=== PATIENT | male | born 1965 | race Caucasian/White ===

== ENCOUNTER 2021-08-13 05:49 | Day surgery (SDC) | payer OTHER ==
[~2021-08-13] VITALS: Ht 167.6 cm; Wt 82.1 kg
[~2021-08-13 05:49] MED LIST: AMLO-258 PO; ASPI-1444 PO; ATOR40TA28 PO; BUME1TAB34 PO; CARV6 PO; CLOP75TA60 PO; CLOT10SO TP; DULA1.5P SQ; ERTU15TA PO; FOLI0.4T6 PO; GLIP10TA10 PO; ISOS5TAB5 PO; METF-1211 PO; SACU1TAB7 PO; SITA100 PO; SODIUM CHLORIDE 0.9% 1,000 ML IV ONE; SODIUM CHLORIDE 0.9% 1,000 ML ONE; TAMS-13 PO
[2021-08-13] MEDS ORDERED: DIAZEPAM 5 MG TABLET ONE (05:50)
[2021-08-13] MEDS ORDERED: ASPIRIN 81 MG CHEWABLE TABLET ONE (05:51)
[2021-08-13] MEDS ORDERED: DiphenhydrAMINE HCL 50 MG CAPSULE ONE (05:51)
[2021-08-13 06:16] LABS: COVID AG,FIA SOURCE NASAL SWAB
[2021-08-13 06:55] LABS: GLUCOMETER DEV NAME(LOC) SDS.; GLUCOSE,POINT OF CARE 132 MG/DL (70-110)
[2021-08-13 07:26] VITALS: BP 174/77
[2021-08-13] MEDS ORDERED: SODIUM BICARBONATE 50 MEQ/50 ML VIAL ONE (07:26)
[2021-08-13] MEDS ORDERED: MIDAZOLAM HCL 2 MG/2 ML VIAL ONE (07:26)
[2021-08-13] MEDS ORDERED: FentaNYL CITRATE PF 100 MCG/2 ML VIAL ONE ×2 (07:26→08:44)
[2021-08-13] MEDS ORDERED: IOHEXOL 300 MG/ML 50 ML VIAL ONE (07:26)
[2021-08-13] MEDS ORDERED: HEPARIN SODIUM 1000 UNITS/NS 1,000 ML ONE (07:26)
[2021-08-13] MEDS ORDERED: IOHEXOL 300 MG/ML 150 ML VIAL ONE (07:26)
[2021-08-13] MEDS ORDERED: LIDOCAINE/PF 1% 30 ML VIAL ONE (07:26)
[2021-08-13] MEDS ORDERED: IOHEXOL 300 MG/ML 100 ML VIAL ONE (07:26)
[2021-08-13] MEDS ORDERED: ASPIRIN 81 MG CHEWABLE TABLET PO ONE (07:30)
[2021-08-13] MEDS ORDERED: DIAZEPAM 5 MG TABLET PO ONE (07:30)
[2021-08-13] MEDS ORDERED: DiphenhydrAMINE HCL 50 MG CAPSULE PO ONE (07:30)
[2021-08-13] MEDS ORDERED: IOHEXOL 300 MG/ML 150 ML VIAL ICOR ONE (07:45)
[2021-08-13] MEDS ORDERED: LIDOCAINE 1% 30 ML/SOD BICARB 8.4% 4 ML SQ ONE (07:45)
[2021-08-13] MEDS ORDERED: FentaNYL CITRATE PF 100 MCG/2 ML VIAL IVP ONE ×4 (07:45→08:45)
[2021-08-13] MEDS ORDERED: HEPARIN SODIUM 1000 UNITS/NS 1,000 ML IARTER ONE (07:45)
[2021-08-13] MEDS ORDERED: MIDAZOLAM HCL 2 MG/2 ML VIAL IVP ONE ×3 (07:45→08:15)
[2021-08-13] MEDS ORDERED: HEPARIN SODIUM,PORCINE 5,000 UNITS/ML VIAL IVP ONE (08:30)
[2021-08-13] MEDS ORDERED: NITROGLYCERIN 50 MG/D5% WATER 250 ML ONE (08:36)
[2021-08-13] MEDS ORDERED: IOHEXOL 300 MG/ML 50 ML VIAL IARTER ONE (09:00)
[2021-08-13] MEDS ORDERED: CLOPIDOGREL BISULFATE 75 MG TABLET ONE (09:22)
[2021-08-13 09:25] VITALS: BP 146/77
[2021-08-13] MEDS ORDERED: NITROGLYCERIN/D5W 50 MG/250 ML IV BOTTLE IARTER ONE (09:30)
[2021-08-13] MEDS ORDERED: CLOPIDOGREL BISULFATE 75 MG TABLET PO ONE (09:30)
== END 2021-08-13 13:30 | disposition home or self-care (01) ==
LOC: SDS 05:49
PROVIDERS: ATTEND Internal Medicine Interventional Cardiology
DX: I70.211 Atherosclerosis of native arteries of extremities with intermittent claudication, right leg (principal); I25.10 Atherosclerotic heart disease of native coronary artery without angina pectoris; I10 Essential (primary) hypertension; Z79.899 Other long term (current) drug therapy; E11.9 Type 2 diabetes mellitus without complications; Z95.0 Presence of cardiac pacemaker; Z98.890 Other specified postprocedural states; Z79.82 Long term (current) use of aspirin
CPT/HCPCS: 37225; 37229; 37252; 37253; 75630; 82962; 87426; 93005; 99152; 99153; C1725; C1757; C1760; C1887; C9803; J1644; J2250; J3010; J3490 ×3; J7030; Q9967 ×2; 36200; 75716; 75960; 75962; Z7610